=== PATIENT | female | born 1990 | race Caucasian/White ===

== ENCOUNTER 2017-07-10 09:03 | Emergency (ER) | payer OTHER ==
[~2017-07-10] VITALS: Ht 170.2 cm; Wt 77.3 kg
[2017-07-10] MEDS ORDERED: ALBUTEROL SULFATE 2.5 MG/0.5 ML INH NEB SOLN NEB ONE ×2 (09:30→10:30)
[2017-07-10] MEDS ORDERED: ZITHTAB PO (10:57)
[2017-07-10] MEDS ORDERED: ALBU17IN INH (10:57)
[2017-07-10 11:04] VITALS: BP 112/63
== END 2017-07-10 11:13 | disposition home or self-care (01) ==
LOC: M ED 09:03
DX: O99.89 Other specified diseases and conditions complicating pregnancy, childbirth and the puerperium (principal); J20.9 Acute bronchitis, unspecified; O99.011 Anemia complicating pregnancy, first trimester; Z3A.01 Less than 8 weeks gestation of pregnancy; Z88.6 Allergy status to analgesic agent

== ENCOUNTER 2018-06-10 21:51 | Emergency (ER) | payer OTHER ==
[2018-06-10] MEDS: diphenhydrAMINE 50 MG CAP PO (23:15)
== END 2018-06-10 23:20 | disposition home or self-care (01) ==
LOC: M ED 21:51
DX: L50.9 Urticaria, unspecified (principal); Z88.8 Allergy status to other drugs, medicaments and biological substances; F17.210 Nicotine dependence, cigarettes, uncomplicated
CPT/HCPCS: 99282

== ENCOUNTER 2019-03-05 17:41 | Emergency (ER) | payer OTHER ==
[~2019-03-05] VITALS: Ht 170.2 cm; Wt 80.0 kg
[~2019-03-05 17:41] MED LIST: ALBU17IN INH; BENA25CA4 PO; HYDR25OIN TOP; ZITHTAB PO
[2019-03-05] MEDS ORDERED: ACET-908 PO (18:16)
[2019-03-05] MEDS ORDERED: AUGM875T28 PO (19:14)
[2019-03-05 19:19] VITALS: BP 101/63
== END 2019-03-05 19:24 | disposition home or self-care (01) ==
LOC: M ED 17:41
DX: O99.513 Diseases of the respiratory system complicating pregnancy, third trimester (principal); J06.9 Acute upper respiratory infection, unspecified; O99.89 Other specified diseases and conditions complicating pregnancy, childbirth and the puerperium; H66.92 Otitis media, unspecified, left ear; R68.84 Jaw pain; Z3A.33 33 weeks gestation of pregnancy; O99.333 Smoking (tobacco) complicating pregnancy, third trimester; F17.210 Nicotine dependence, cigarettes, uncomplicated; Z88.6 Allergy status to analgesic agent